=== PATIENT | female | born 1995 | race Asian ===

== ENCOUNTER → 2018-11-10 | Outpatient (CLI) | payer OTHER ==
[2018-11-10 08:52] LABS: microscopic required? NO
[2018-11-10 08:57] LABS: BASOPHIL % 0.5 % (0-2); PLATELET COUNT 307 x10^3mcL (130-400); RED CELL DISTRIBUTION WIDTH 13.8 % (11.5-14.5)
[2018-11-10 09:41] LABS: CARBON DIOXIDE 27.2 mmol/L (21-32); CHLORIDE SERUM 103 mmol/L (98-107); SODIUM SERUM 141 mmol/L (136-145)
[2018-11-10 09:54] LABS: ALBUMIN 4.7 g/dL (3.4-5.0); ALKALINE PHOSPHATASE 73 U/L (46-116); AST/SGOT 15 U/L (15-37); BILIRUBIN TOTAL 0.6 mg/dL (0.20-1.00); CHOLESTEROL 159 mg/dL (<200); CREATININE SERUM 0.7 mg/dL (0.6-1.0); GFR1 > 60 mL/min; TRIGLYCERIDES 36 mg/dL (<150)
[2018-11-10 09:55] LABS: ALT/SGPT 36 U/L (14-59); CALCIUM 9.4 mg/dL (8.5-10.1); GLUCOSE SERUM 88 mg/dL (74-106)
[2018-11-10 09:56] LABS: CHOLESTEROL/HDL RATIO 1.8; HDL CHOLESTEROL 86 mg/dL (40-60); T3 TOTAL 1.2 ng/mL; TOTAL PROTEIN, SERUM 8.7 g/dL (6.4-8.2)
[2018-11-10 10:31] LABS: FREE T4 1.21 ng/dL (0.76-1.46); FREE THYROXINE INDEX 4.1 ug/dL (1.4-4.5); T4(THYROXINE) 11.5 ug/dL (4.7-13.3)
[2018-11-10 12:58] LABS: urine erythrocyte NEGATIVE (NEGATIVE)
== END | disposition home or self-care (01) ==
LOC: LB 08:20
DX: Z00.00 Encounter for general adult medical examination without abnormal findings (principal)
CPT/HCPCS: 84439

== ENCOUNTER → 2019-04-06 | Outpatient (CLI) | payer OTHER | END | disposition home or self-care (01) | LOC: LB 09:09 | DX: E55.9 Vitamin D deficiency, unspecified (principal) ==